=== PATIENT | male | born 1975 | race Caucasian/White ===

== ENCOUNTER 2017-01-05 13:51 | Inpatient (IN) | payer MEDICAID ==
[~2017-01-05] VITALS: Ht 170.2 cm; Wt 127.3 kg
[2017-01-05 14:51] LABS: BASOPHILS 0.7 % (0-2); EOSINOPHILS 1.5 % (0-7); HEMATOCRIT 40.3 % (42.0-54.0); HEMOGLOBIN 13.1 g/dL (13.5-17.5); IMMATURE GRANULOCYTES 0.2 % (0-5); LYMPHOCYTES 28.6 % (15-50); MCH 29.6 pg (26.0-34.0); MCHC 32.5 g/dL (31.0-37.0); MEAN PLATELET VOLUME 9.4 fL (7.4-10.4); MONOCYTES 5.4 % (2-11); NEUTROPHILS 63.6 % (40-80); PLATELET COUNT 246 10x3/uL (130-400); RBC 4.43 10x6/uL (4.20-6.10); RDW 14.1 % (11.5-14.5); WBC 8.8 10x3/uL (4.8-10.8)
[2017-01-05 15:03] LABS: ALBUMIN 3.1 g/dL (3.4-5.0); ALKALINE PHOSPHATASE 108 U/L (46-116); ALT (SGPT) 68 U/L (10-68); BILIRUBIN - TOTAL 0.29 mg/dL (0.2-1.3); CALC OSMOLALITY 277 mosm/kg (275-300); CALCIUM 8.7 mg/dL (8.5-10.1); CARBON DIOXIDE 23.6 mmol/L (21.0-32.0); CHLORIDE - SERUM 102 mmol/L (98-107); GLUCOSE 172 mg/dL (74-106); POTASSIUM - SERUM 3.5 mmol/L (3.5-5.1); PROTEIN - SERUM 7.6 g/dL (6.4-8.2); SODIUM 137 mmol/L (136-145); UREA NITROGEN 12 mg/dL (7-18); eGFR NON AFRICAN AMERICAN 87 mL/min (90-120)
--- NOTE | 2017-01-05 17:41 | NUR ---
RECIEVED PATIENT VIA WHEELCHAIR WITH NURSE FROM THE EMERGENCY DEPT. PATIENT IS AWAKE, ALERT AND ORIENTED X'S 4. RESPIRATIONS ARE EVEN AND UNLABORED ON ROOM AIR. NO SIGNS OF DISTRESS NOTED. PATIENT HAS A WOUND TO HIS RIGHT KNEE, WITH ESCHAR FROM THE SKIN, THERE IS PURULENT DRAINAGE SEEPING AROUND IT AND DOWN PATIENT'S LEG. EXPLAINED TO PATIENT THAT I AM GOING PUT HIM ON CONTACT ISOLATION PRECAUTIONS WHILE THE WOUND CULTURES ARE PENDING. PATIENT VERBALIZED UNDERSTANDING. APPLIED ADAPTIC DRESSING TO RIGHT KNEE OVER WOUND AND AN ABD PAD OVER THAT AND TAPED IT DOWN.
[2017-01-05] MEDS ORDERED: PRINIVIL20 MG PO (17:44)
[2017-01-05] MEDS ORDERED: ZYRTEC10 MG PO (17:44)
[2017-01-05 17:45] VITALS: BP 187/126; Ht 170.2 cm; Wt 127.3 kg
[2017-01-05 18:45] VITALS: BP 149/99
[2017-01-05 20:00] VITALS: BP 151/80
--- NOTE | 2017-01-05 23:45 | NUR ---
ASSESSED AT THE BEGINNING OF THE SHIFT. PT IS ALERT AND ORIENTED, ABLE TO VERBALIZE NEEDS. HIS RIGHT KNEE HAS A DRESSING IN PLACE AND IT LOOKS GOOD. HE HAS BEEN PLACED IN ISOLATION UNTIL CAUSE OF INFECTION IS IDENTIFIED. HE IS PLACED ON NPO STATUS IN CASE OF SURGERY IN THE AM. HE IS ABLE TO GET UP TO THE BATHROOM TO VOID AND IS TURNING FOR COMFORT ON HIS OWN. THE BED IS LOW, RAILS UP X'S 2 WITH THE CALL LIGHT AT HAND/
[2017-01-06] VITALS: BP 152/98
[2017-01-06 04:00] VITALS: BP 151/97
--- NOTE | 2017-01-06 07:15 | NUR ---
REPORT RECEIVED FROM LEGAL INSTRUCTOR NURSE. CALL LIGHT IN REACH.
[2017-01-06 07:44] VITALS: BP 167/115
--- NOTE | 2017-01-06 09:45 | NUR ---
DRESSING TO RIGHT KNEE IS SATURATED WITH BLOODY AND PURULENT DRAINAGE. REMOVED DRESSING AND APPLIED A NEW DRESSING.
--- NOTE | 2017-01-06 10:40 | NUR ---
CLINDAMYCIN IVPB PER ORDER. OFFERED SCDs BUT REFUSED.
[2017-01-06 12:40] VITALS: BP 165/112
--- NOTE | 2017-01-06 12:42 | NUR ---
AM MEDS ADMINISTERED. IS GIVEN TO PATIENT AND EXPLAINED USE WITH RETURN DEMONSTRATION. URINAL GIVEN TO PATIENT FOR MONITOR OF OUTPUT. DRSG CHANGED PER ORDER. LUNCH TRAY IN ROOM. CALL LIGHT IN REACH.
--- NOTE | 2017-01-06 12:47 | NUR ---
PASSWORD OBTAINED AND PLACED IN COMPUTER.
--- NOTE | 2017-01-06 14:05 | NUR ---
NO NEEDS VOICED AT THIS TIME. CALL LIGHT IN REACH.
[2017-01-06 15:50] VITALS: BP 152/102
--- NOTE | 2017-01-06 16:00 | NUR ---
AMBULATED IN HALLWAY. TOLERATED WELL.
--- NOTE | 2017-01-06 17:19 | NUR ---
IV CLINDAMYCIN PER ORDER. CALL LIGHT IN REACH.
--- NOTE | 2017-01-06 19:41 | NUR ---
NO CHANGES IN INITIAL ASSESSMNET. CALL LIGHT IN REACH. WILL CONTINUE WITH PLAN OF CARE.
[2017-01-06 20:00] VITALS: BP 152/91
--- NOTE | 2017-01-06 20:00 | NUR ---
ASSESSMENT PER FLOWSHEET. IV PATENT RT HAND OF NS AT 50CC'S/HR. SITE CLEAR. DRESSING TO RT KNEE C/D/I. PT IN CONTACT ISOLATION. SR UP X2 CALL LIGHT WITHIN REACH.
--- NOTE | 2017-01-06 22:00 | NUR ---
MEDS GIVEN PER MAR. DENIES PAIN OR DISCOMFORT.
--- NOTE | 2017-01-07 | NUR ---
EYES CLOSED RESPIRATIONS WITH EASE AND UNLABORED.
[2017-01-07 00:09] VITALS: BP 165/110
--- NOTE | 2017-01-07 03:05 | NUR ---
RESTING QUIETLY RESPIRATIONS WITH EASE AND UNLABORED. DENIES PAIN.
[2017-01-07 04:00] VITALS: BP 137/91
--- NOTE | 2017-01-07 07:58 | NUR ---
AWAKE AND ALERT. ORIENTED X3. NO C/O AT THIS TIME. BP IS ELEVATED 149/108. PATIENT REPORTS THE LISINOPRIL CAUSES HIM TO COUGH, HE ALWAYS HAS. WILL NOTIFY DR. NIELSEN AND SEE IF NEW ORDERS. LUNGS ARE CLEAR BILATERALLY, NO COUGH AT THIS TIME. SKIN IS INTACT WITHOUT REDNESS EXCEPT WOUND TO RIGHT KNEE WHICH HAS A DRESSING IN PLACE WITH SEROUS SANGUINESS DRAINAGE NOTED. WILL MONITOR. IV TO RIGHT HAND IS PATENT AT THIS TIME. DENIES NEEDS.
[2017-01-07 07:59] VITALS: BP 149/108
[2017-01-07 08:50] LABS: BASOPHILS 0.5 % (0-2); EOSINOPHILS 3.6 % (0-7); HEMATOCRIT 39.7 % (42.0-54.0); HEMOGLOBIN 12.9 g/dL (13.5-17.5); IMMATURE GRANULOCYTES 0.2 % (0-5); LYMPHOCYTES 28.8 % (15-50); MCH 29.8 pg (26.0-34.0); MCHC 32.5 g/dL (31.0-37.0); MCV 91.7 fL (80.0-100.0); MONOCYTES 5.4 % (2-11); NEUTROPHILS 61.5 % (40-80); RBC 4.33 10x6/uL (4.20-6.10); RDW 14.2 % (11.5-14.5)
[2017-01-07 08:57] LABS: CALCIUM 8.7 mg/dL (8.5-10.1); CARBON DIOXIDE 27.9 mmol/L (21.0-32.0); CHLORIDE - SERUM 106 mmol/L (98-107); CREATININE - SERUM 0.9 mg/dL (0.6-1.3); SODIUM 141 mmol/L (136-145); eGFR NON AFRICAN AMERICAN > 90 mL/min (90-120)
[2017-01-07 08:59] LABS: CALC OSMOLALITY 282 mosm/kg (275-300); GLUCOSE 121 mg/dL (74-106); UREA NITROGEN 16 mg/dL (7-18)
[2017-01-07 09:05] LABS: PLATELET COUNT 193 10x3/uL (130-400); WBC 6.1 10x3/uL (4.8-10.8)
--- NOTE | 2017-01-07 09:48 | NUR ---
DR. NIELSEN HERE. DEBRIDED WOUND AT BEDSIDE. DRESSING APPLIED TO AREA PER PANKAJ THE WOUND CARE NURSE.
--- NOTE | 2017-01-07 10:01 | NUR ---
WOUND CARE CONSULT: Right knee wound with thick/wet escar. Odor noted. Dr. Shepherd at bedside and removed the eschar from wound bed. Measurements 6.5cm x 5cm x 1.2cm Wound bed is hodges/herrera. Redness noted surrounding wound and it is very tender to the touch. Cleansed and applied Santyl ointment to necrotic tissue of wound bed. Covered with dry 4x4s and secured with tape. Instructed pt on use of Santyl to debride necrotic tissue. He voiced understanding. Will monitor.
--- NOTE | 2017-01-07 10:15 | NUR ---
IV TO RIGHT HAND IS LEAKING. RESITED TO LEFT HAND WITH 22G AFTER ONE ATTEMPT. IV TO RIGHT HAND D/C WITH CATHETER INTACT.
--- NOTE | 2017-01-07 12:00 | NUR ---
MANUAL BP IS LOWER THAN WITH THE MACHINE. WILL CONTINUE TO MONITOR.
[2017-01-07 12:07] VITALS: BP 158/98
--- NOTE | 2017-01-07 14:00 | NUR ---
AMBULATED IN HALLWAY PER SELF OVER 1000 FEET. DENIES NEEDS.
[2017-01-07 16:32] VITALS: BP 138/98
--- NOTE | 2017-01-07 18:00 | NUR ---
ATE ALMOST ALL OF SUPPER. DENIES NEEDS. NO CHANGES NOTED.
[2017-01-07 20:00] VITALS: BP 189/108
--- NOTE | 2017-01-07 21:25 | NUR ---
PATIENT SITTING UP IN BED. ALERT AND ORIENTED. NO SIGNS OF DISTRESS NOTED. SCHEDULED MED GIVEN. SHIFT ASSESSMENT COMPLETED. DENIES ANY NEEDS AT THIS TIME. BED LOW. CALL LIGHT IN REACH
[2017-01-08] VITALS: BP 145/88
--- NOTE | 2017-01-08 03:04 | NUR ---
PATIENT RESTING WITH EYES CLOSED AND NO VISIBLE SIGNS OF DISTRESS. BED IN LOWEST POSITION AND CALL LIGHT WITHIN REACH.
[2017-01-08 04:00] VITALS: BP 158/86
[2017-01-08 07:09] LABS: BASOPHILS 0.6 % (0-2); EOSINOPHILS 4.6 % (0-7); HEMATOCRIT 40.3 % (42.0-54.0); HEMOGLOBIN 12.7 g/dL (13.5-17.5); IMMATURE GRANULOCYTES 0.2 % (0-5); LYMPHOCYTES 29.8 % (15-50); MCH 29.5 pg (26.0-34.0); MCHC 31.5 g/dL (31.0-37.0); MEAN PLATELET VOLUME 10.8 fL (7.4-10.4); MONOCYTES 6.4 % (2-11); NEUTROPHILS 58.4 % (40-80); PLATELET COUNT 165 10x3/uL (130-400); RDW 14.7 % (11.5-14.5); WBC 6.3 10x3/uL (4.8-10.8)
[2017-01-08 07:19] LABS: ALBUMIN 2.8 g/dL (3.4-5.0); ALKALINE PHOSPHATASE 86 U/L (46-116); ALT (SGPT) 65 U/L (10-68); BILIRUBIN - TOTAL 0.66 mg/dL (0.2-1.3); CALC OSMOLALITY 279 mosm/kg (275-300); CALCIUM 8.4 mg/dL (8.5-10.1); CARBON DIOXIDE 24.1 mmol/L (21.0-32.0); CHLORIDE - SERUM 105 mmol/L (98-107); CREATININE - SERUM 0.7 mg/dL (0.6-1.3); GLUCOSE 108 mg/dL (74-106); MCV 93.7 fL (80.0-100.0); PROTEIN - SERUM 6.6 g/dL (6.4-8.2); SODIUM 140 mmol/L (136-145); UREA NITROGEN 13 mg/dL (7-18); eGFR NON AFRICAN AMERICAN > 90 mL/min (90-120)
[2017-01-08 07:20] LABS: POTASSIUM - SERUM 4.7 mmol/L (3.5-5.1)
--- NOTE | 2017-01-08 07:51 | NUR ---
Patient Name: CELY GARDNER Admission Status: ER Accout number: [id number] Admission Date: 01-06-2017 : 1975 Admission Diagnosis: Attending: BALA Current LOS: 2 Anticipated DC Date: 01-09-2017 Planned Disposition: Home Primary Insurance: [place] [employer]IVATE OPTIONS VAN Discharge Planning Comments: CM MET WITH PATIENT REGARDING D/C NEEDS AND PLANS. PATIENT STATED HE LIVES WITH HIS BROTHER AND HE OR ANOTHER FAMILY MEMBER WILL DRIVE HIM HOME AT DISCHARGE. PATIENT STATED HOME IS SAFE AND HAS 2 STEPS TO ENTER HOME AND NO STAIRS INSIDE. PATIENT IS INDEPENDENT WITH HIS CARE AND HAS NO DME AT HOME. PATIENT HAS NO PCP AND USES [facility] ON [address] FOR HIS PHARMACY. PATIENT IS REFUSING HOME HEALTH. PATIENT STATED HE COULD DO HIS DRESSING CHANGE HIMSELF. CM WILL CONTINUE TO FOLLOW PATIENT WITH D/C NEEDS AND PLANS. PCP NONE [facility] ([facility]) [phone] KENYATTA GARDNER (BROTHER) [phone] Brine Tank Operator: Geno Poole Is the patient Alert and Oriented? Yes 0 * How many steps to enter\exit or inside your home? 2 0 * PCP NONE 0 * Pharmacy [facility] [address] 0 * Preadmission Environment Home with Family 0 * ADLs Independent 0 * Equipment None 0 * List name and contact numbers for known caregivers / representatives who currently or will assist patient after discharge: KENYATTA GARDNER (BROTHER) [phone] * Community resources currently utilized None 0 * Additional services required to return to the preadmission environment? Yes 0 * Can the patient safely return to the preadmission environment? Yes 0 * Has this patient been hospitalized within the prior 30 days at any hospital? No 0 Grand Total: 0
--- NOTE | 2017-01-08 08:03 | NUR ---
AWAKE AND ALERT. ORIENTED X3. NO C/O AT THIS TIME. BP IS UP THIS AM. LUNGS ARE CLEAR BILATERALLY, NO COUGH NOTED. SKIN IS INTACT WITHOUT REDNESS EXCEPT WOUND TO RIGHT KNEE WHICH HAS A DRESSING IN PLACE WITH SEROUS DRAINAGE NOTED. IV TO LEFT HAND IS PATENT WITHOUT REDNESS AT INSERTION SITE. DENIES NEEDS.
[2017-01-08 08:18] VITALS: BP 164/114
[2017-01-08] MEDS ORDERED: AUGMENTIN 875-11 TAB PO (08:40)
[2017-01-08] MEDS ORDERED: COZAAR50 MG PO (08:42)
--- NOTE | 2017-01-08 08:57 | NUR ---
CM REASSESSMENT NOTE: PATIENT IS DISCHARGING HOME TODAY AND STATED HIS BROTHER IS DRIVING HIM. PATIENT HAS REFUSED HOME HEALTH AND HAD NO OTHER NEEDS FOR DISCHARGE. DR. NIELSEN STATED PATIENT COULD DO HIS OWN DRESSING CHANGES.
[2017-01-08] MEDS ORDERED: SANTYL30 GM TP (09:05)
--- NOTE | 2017-01-08 10:59 | NUR ---
PATIENT IS DISCHARGED TO HOME AMBULATORY PER SELF. DISCHARGE INSTRUCTIONS GIVEN BOTH VERBALLY AND WRITTEN. ALL QUESTIONS ANSWERED. PATIENT VERBALIZED UNDERSTANDING OF SAME. SOME NEEDED PRESCRIPTIONS EFAXED TO PHARMACY OF CHOICE SOME GIVEN HARD COPY. IV TO LEFT HAND D/C WITH CATHETER INTACT. WAITING ON RIDE AT THIS TIME.
--- NOTE | 2017-01-08 13:12 | NUR ---
PATIENT DISCHARGED TO HOME AMBULATORY WITH FAMILY AT THIS TIME.
== END 2017-01-08 13:12 | disposition home or self-care (01) | DRG 603 ==
LOC: D.ER 13:51 → D.MS 16:30 → OBSVTIME 16:30 → D.MS 16:30
PROVIDERS: Emergency Medicine; Family Medicine; ADMIT Surgery
DX: L03.115 Cellulitis of right lower limb (principal); F17.203 Nicotine dependence unspecified, with withdrawal; I10 Essential (primary) hypertension; V29.9XXD Motorcycle rider (driver) (passenger) injured in unspecified traffic accident, subsequent encounter